=== PATIENT | male | born 1995 | race Caucasian/White ===

== ENCOUNTER 2020-05-24 17:07 | Outpatient (REF) | payer OTHER, SELFPAY ==
[2020-05-24 18:03] LABS: COVID-19 Test Negative (Negative)
== END 2020-05-24 17:08 | disposition home or self-care (01) ==
LOC: HO.LAB 17:07
PROVIDERS: Visit Provider Internal Medicine
DX: Z20.828 Contact with and (suspected) exposure to other viral communicable diseases (principal)
CPT/HCPCS: 87635

== ENCOUNTER 2020-05-26 15:52 | Outpatient (REF) | payer OTHER, SELFPAY ==
[2020-05-26 17:08] LABS: COVID-19 Test Negative (Negative)
== END 2020-05-26 15:53 | disposition home or self-care (01) ==
LOC: HO.LAB 15:52
PROVIDERS: Visit Provider Internal Medicine
DX: Z20.828 Contact with and (suspected) exposure to other viral communicable diseases (principal)
CPT/HCPCS: 87635

== ENCOUNTER 2020-06-13 16:42 | Outpatient (REF) | payer OTHER, SELFPAY ==
[2020-06-13 18:29] LABS: COVID-19 Test Negative (Negative)
== END 2020-06-13 16:43 | disposition home or self-care (01) ==
LOC: HO.LAB 16:42
PROVIDERS: Visit Provider Internal Medicine
DX: Z20.828 Contact with and (suspected) exposure to other viral communicable diseases (principal)
CPT/HCPCS: 87635; C9803

== ENCOUNTER 2020-07-17 17:24 | Outpatient (REF) | payer OTHER, SELFPAY ==
[2020-07-17 17:58] LABS: COVID-19 Test Negative (Negative); IDNOW Serial# 55D5AD1C
== END 2020-07-17 17:25 | disposition home or self-care (01) ==
LOC: HO.EMPCOV 17:24
PROVIDERS: PCP Internal Medicine; Visit Provider Internal Medicine
DX: Z20.828 Contact with and (suspected) exposure to other viral communicable diseases (principal)
CPT/HCPCS: 87635; C9803

== ENCOUNTER 2020-07-19 13:51 | Outpatient (REF) | payer OTHER, SELFPAY ==
[2020-07-19 14:15] LABS: COVID-19 Test Negative (Negative)
== END 2020-07-19 13:52 | disposition home or self-care (01) ==
LOC: HO.EMPCOV 13:51
PROVIDERS: Visit Provider Internal Medicine
DX: Z20.828 Contact with and (suspected) exposure to other viral communicable diseases (principal)
CPT/HCPCS: 87635; C9803

== ENCOUNTER 2020-08-03 15:01 | Outpatient (RCR) | payer OTHER, SELFPAY ==
[2020-08-09 09:48] LABS: SARS-COV-2 PCR UMBRL Not Detected
[2020-08-16 09:50] LABS: SARS-COV-2 PCR UMBRL NOT DETECTED
== END 2020-08-03 15:02 | disposition home or self-care (01) ==
LOC: HO.EMPCOV 15:01
PROVIDERS: Visit Provider Internal Medicine
DX: Z20.828 Contact with and (suspected) exposure to other viral communicable diseases (principal)
CPT/HCPCS: 36415; C9803; U0003

== ENCOUNTER 2021-08-06 08:56 | Outpatient (REF) | payer BC, SELFPAY ==
[2021-08-06 09:26] LABS: COVID-19 Test Positive (Negative)
== END 2021-08-06 08:57 | disposition home or self-care (01) ==
LOC: HO.LAB 08:56
PROVIDERS: Visit Provider Internal Medicine
DX: Z20.822 Contact with and (suspected) exposure to COVID-19 (principal)
CPT/HCPCS: 36415; 87635; C9803